=== PATIENT | male | born 1955 | race Caucasian/White ===

== ENCOUNTER → 2024-01-18 | Outpatient (CLI) | payer MEDICARE, OTHER | LOC: COL.RAD 12:04 | DX: M17.0 Bilateral primary osteoarthritis of knee (principal); M25.851 Other specified joint disorders, right hip; M25.852 Other specified joint disorders, left hip ==

== ENCOUNTER → 2024-06-13 | Outpatient (CLI) | payer MEDICARE, OTHER ==
[~2024-06-13] MED LIST: CEPHALEXIN500 M1 PO; ELIQUIS 2.5 PO; ELIQUIS 5MG PO; NORCO 325 MG-51 TAB PO; ULTRAM 50MG TAB50 MG PO
== END ==
LOC: COL.RAD 13:09
DX: M25.562 Pain in left knee (principal); Z96.652 Presence of left artificial knee joint